=== PATIENT | female | born 1965 ===

== ENCOUNTER 2017-02-05 15:33 | Emergency (ER) | payer BC ==
[2017-02-05] MEDS ORDERED: 0.9 % SODIUM CHLORIDE 1,000 ML BAG IV ONE (15:44)
--- NOTE | 2017-02-05 15:45 | Emergency Department Record ---
History of Present Illness - General Chief Complaint: Abdominal Pain Stated Complaint: ABD PAIN Time Seen by Provider: 02/05/17 15:39 Source: Patient Mode of Arrival: Ambulatory Limitations: No limitations - History of Present Illness Initial Comments: 51 yo female presents from the [facility] with 4 days of abdominal pain. The pain is mostly on the left sided. It started 4 days ago but has progressed. She was concerned about constipation and did take a stool softer. After this she had loose stools but no relief of her symptoms. No fevers. No blood in the stools. No dysuria. Past surgery includes gall bladder removal. No mass or bulge in the LLQ MD Complaint: Abdominal pain -: Days(s) Location: LLQ Radiation: LLQ Migration to: LLQ Severity: Moderate Quality: Aching Consistency: Constant Improves With: Rest Worsens With: Movement Associated Symptoms: Constipation, Diarrhea - Related Data Home Medications Medication Instructions Recorded Confirmed Last Taken Cholecalciferol (Vitamin D3) 2,000 unit PO DAILY tab 10/24/15 02/05/17 02/04/17 [Vitamin D3] Ibuprofen 800 mg PO ASDIR PRN tab 10/24/15 02/05/17 02/04/17 Epinephrine [Epipen] 1 unit INJ ASDIR PRN 2 Days 02/05/17 02/05/17 Unknown Topiramate 2 tab PO DAILY 30 Days 02/05/17 02/05/17 02/04/17 Previous Rx's Medication Instructions Recorded Ciprofloxacin HCl [Cipro] 500 mg PO Q12HR #20 tablet 02/05/17 Metronidazole [Flagyl] 500 mg PO BID #20 tablet 02/05/17 Allergies Allergy/AdvReac Type Severity Reaction Status Date / Time Sulfa (Sulfonamide Allergy Mild RASH Unverified 02/05/17 15:48 Antibiotics) Review of Systems Constitutional: Denies: Chills, Fever, Malaise, Weakness Eyes: Denies: Eye discharge ENT: Denies: Congestion, Throat pain Respiratory: Denies: Cough, Dyspnea, Hemoptysis, Stridor, Wheezes Cardiovascular: Denies: Chest pain, Syncope Endocrine: Denies: Fatigue Gastrointestinal: Reports: As per HPI, Abdominal pain, Constipation, Diarrhea Genitourinary: Denies: Dysuria, Urgency Musculoskeletal: Denies: Arthralgia, Back pain, Joint swelling, Myalgia, Neck pain Skin: Denies: Bruising, Change in color, Rash Neurological: Denies: Headache, Numbness, Weakness Psychiatric: Denies: Anxiety Hematological/Lymphatic: Denies: Blood Clots, Easy bleeding, Easy bruising, Swollen glands Physical Exam - General General Appearance: Alert, Oriented x3, Cooperative, No acute distress Limitations: No limitations - Head Head exam: Normal inspection - Eye Eye exam: Normal appearance, PERRL. negative: Conjunctival injection, Periorbital swelling, Scleral icterus - ENT ENT exam: Normal exam, Mucous membranes moist Ear exam: Normal external inspection Nasal Exam: Normal inspection Mouth exam: Normal external inspection - Neck Neck exam: Normal inspection, Full ROM. negative: Tenderness - Respiratory Respiratory exam: Normal lung sounds bilaterally. negative: Respiratory distress - Cardiovascular Cardiovascular Exam: Regular rate, Normal rhythm, Normal heart sounds - Rectal Rectal exam: Deferred - exam: Deferred - Extremities Extremities exam: Normal inspection, Full ROM, Normal capillary refill. negative: Pedal edema, Tenderness - Back Back exam: Reports: Normal inspection, Full ROM. Denies: CVA tenderness (R), CVA tenderness (L), Muscle spasm, Paraspinal tenderness, Rash noted, Tenderness , Vertebral tenderness - Neurological Neurological exam: Alert, Normal gait, Oriented X3 - Psychiatric Psychiatric exam: Normal affect, Normal mood - Skin Skin exam: Dry, Intact, Normal color, Warm Course - Reevaluation(s) Reevaluation #1: No acute changes on the CBC or CMP Normal Lipase 02/05/17 16:48 Reevaluation #2: The CT scan was read as wall thickening with stranding of the descending and sigmoid colon with scattered diverticula suggesting acute diverticulitis without complications of free fluid, abscess or free area. The is an irregular area in the left kidney that will need non emergent followup to rule out mass or tumor. 02/05/17 19:18 Reevaluation #3: 02/05/17 19:31 I discussed the findings The patient clinically appear well, she is eating and drinking normally, her pain is well controlled She is a good outpatient candidate She was given Cipro and Flagyl She will call her doctor for follow up of he diverticulitis and the left renal mass We discussed reasons to return to the ER in the next few days as her diverticulitis is treated. Medical Decision Making - Lab Data Result diagrams: 02/05/17 16:16 02/05/17 16:16 Disposition Disposition: Discharge Clinical Impression: Left kidney mass Diverticulitis Qualifiers: Diverticulitis site: large intestine Diverticulitis bleeding: without bleeding Diverticulitis complication: without perforation or abscess Qualified Code(s): K57.32 - Diverticulitis of large intestine without perforation or abscess without bleeding Disposition: Home, Self-Care Condition: (1) Good Instructions: Diverticulitis (ED) Additional Instructions: Immediately return if you have uncontrolled pain, fever, vomiting or any concerns about your abdomen You will need to follow up your CT scan today that showed a small irregular area in your left kidney. The radiologist recommends an MRI of the kidney. Call your doctor to set this up as soon as possible. Prescriptions: Ciprofloxacin HCl [Cipro] 500 mg PO Q12HR #20 tablet Metronidazole [Flagyl] 500 mg PO BID #20 tablet Forms: Patient Portal Access Time of Disposition: 19:35
[2017-02-05 16:20] LABS: BASO % 0.3 % (0-6); EOS % 0.8 % (0-6); HEMATOCRIT 46.5 % (35.0-47.0); HEMOGLOBIN 15.3 gm/dl (11.6-16.0); LYMPH % 32.9 % (16-45); MEAN CELL VOLUME 86.6 fl (81-97); MEAN CORPUSCULAR HEMOGLOBIN 28.5 pg (27-33); MEAN CORPUSCULAR HGB CONC 32.9 g/dl (32-36); MEAN PLATELET VOLUME 9.3 fl (7.4-10.4); PLATELET COUNT 318 K/uL (130-400); RED BLOOD COUNT 5.37 M/uL (3.80-5.40); RED CELL DISTRIBUTION WIDTH 13.3 % (11.5-14.5); WHITE BLOOD COUNT W/O DIFF 6.5 K/uL (4.2-12.2)
[2017-02-05 16:32] LABS: ALB/GLOB RATIO 1.1 (1.1-1.8); ALBUMIN 4.5 gm/dL (3.5-5.0); ALKALINE PHOSPHATASE 90 U/L (38-126); ALT/SGPT 31 U/L (9-52); ANION GAP 10.3 (7-16); AST/SGOT 25 U/L (14-36); BLOOD UREA NITROGEN 15 mg/dL (7-17); CARBON DIOXIDE 23.7 mmol/L (22-30); EST GLOMERULAR FILTRATION RATE > 60 ml/min; GLUCOSE,RANDOM 94 mg/dL (70-110); LIPASE 145 U/L (23-300); TOTAL PROTEIN 8.6 gm/dL (6.3-8.2)
[2017-02-05 17:50] LABS: URINE APPEARANCE CLEAR; URINE BILIRUBIN NEGATIVE (NEGATIVE); URINE BLOOD TRACE-I (NEGATIVE); URINE COLOR YELLOW; URINE GLUCOSE (UA) NEGATIVE (NEGATIVE); URINE KETONE NEGATIVE (NEGATIVE); URINE LEUKOCYTE ESTERASE NEGATIVE (NEGATIVE); URINE NITRITE NEGATIVE (NEGATIVE); URINE PROTEIN NEGATIVE (NEGATIVE); URINE UROBILINOGEN 0.2 E.U./dL (0.20 - 1.00)
[2017-02-05 17:55] LABS: URINE BACTERIA NONE SEEN; URINE EPITHELIAL CELLS 0 - 2 (FEW); URINE RBC 0 - 2 (NONE SEEN); URINE WBC NONE SEEN (0-2/hpf)
[2017-02-05] MEDS ORDERED: METRONIDAZOLE 250 MG TABLET PO ONE ×2 (19:31→19:54)
[2017-02-05] MEDS ORDERED: CIPROFLOXACIN HCL 500 MG TABLET PO ONE ×2 (19:31→19:54)
[2017-02-05] MEDS ORDERED: HYDROCODONE/APAP 5/325MG TABLET PO ONE (19:55)
--- NOTE | 2017-02-07 09:57 | CT SCAN REPORT ---
EXAM: CT OF THE ABDOMEN AND PELVIS HISTORY: ABDOMINAL PAIN. TECHNIQUE: CT of the abdomen and pelvis was performed following IV administration of 100 ml of Omnipaque 300 contrast. Oral contrast was also utilized. Comparison: Prior noncontrast CT from 10/17/13. FINDINGS: Limited evaluation of the lung bases is unremarkable. The osseous structures are grossly intact. Status post cholecystectomy. The liver, spleen , adrenal glands, and pancreas are unremarkable. There is a heterogeneously enhancing mass in the mid pole of the left kidney measuring 1.9 x 2.2 cm. This was not definitively present on the prior noncontrast exam. This should be further assessed nonemergently. The kidneys are otherwise unremarkable. No evidence for bowel obstruction. Normal appendix. Wall thickening of the descending and sigmoid colons with surrounding inflammatory change. There are a few diverticula. Findings likely relate to acute diverticulitis. No discreet abscess, free air, or free fluid. Partially calcified and partially exophytic uterine fibroid present. Small/subcentimeter cysts of the ovaries are suggested. Correlate with menstrual history. IMPRESSION: 1. ACUTE DESCENDING/SIGMOID COLON DIVERTICULITIS. RECOMMEND CONTINUED FOLLOW- UP TO INSURE RESOLUTION. NO DISCREET ABSCESS, FREE AIR, OR FREE FLUID. 2. HETEROGENEOUSLY ENHANCING MASS IN THE ANTERIOR MID POLE OF THE LEFT KIDNEY. FURTHER ASSESSMENT WITH NONEMERGENT MRI IS RECOMMENDED. JOB NUMBER: [id number] [facility]
== END 2017-02-05 20:15 | disposition home or self-care (01) ==
LOC: ER 15:33
DX: K57.32 Diverticulitis of large intestine without perforation or abscess without bleeding (principal); N28.89 Other specified disorders of kidney and ureter; R19.7 Diarrhea, unspecified; R10.32 Left lower quadrant pain
CPT/HCPCS: 99284 ×2; 96360; 96361; 83690; 85025; 80053; 81001; 74020; 74177; Q9967; J7030

== ENCOUNTER 2019-04-02 12:48 | Day surgery (SDC) | payer BC ==
[2019-04-02] MEDS ORDERED: PROPOFOL 10 MG/ML VIAL IV ONE (12:49)
[2019-04-02] MEDS ORDERED: LIDOCAINE 2% MDV (20MG/ML) 20ML VIAL IV ONE (12:49)
--- NOTE | 2019-04-03 09:51 | Operative Note ---
OPERATION: COLONOSCOPY. PREOPERATIVE DIAGNOSIS: Family history of colon cancer. POSTOPERATIVE DIAGNOSIS: Sigmoid diverticula. PREPARATION QUALITY: Excellent. ESTIMATED BLOOD LOSS: None. SPECIMENS: None. COMPLICATIONS: None. PROCEDURE: After informed consent was obtained from the patient, she was placed in the left lateral decubitus position in the endoscopy suite, sedated and monitored by the department of anesthesia. Digital rectal exam was unremarkable. A well-lubricated [id number] colonoscope was inserted into the rectum and advanced to the cecum. Preparation quality was excellent. The cecum, cecal bulb, ileocecal valve, appendiceal orifice, ascending colon, transverse colon, descending colon were free of inflammatory changes, mass lesions, or polyps. The sigmoid colon demonstrated scattered diverticula. The rectum was unremarkable in forward and in J-turn views. The endoscope was straightened, the rectal ampulla deflated, and the endoscope was removed. RECOMMENDATIONS: I would suggest the patient follow a high-fiber diet. A repeat colonoscopy in 5 years is suggested based on her family history. As always, thank you for allowing me to participate in the healthcare of your patients. SIRISHA
== END 2019-04-02 14:05 | disposition home or self-care (01) ==
LOC: HOP 12:48
PROVIDERS: ATTEND Internal Medicine Gastroenterology
DX: Z12.11 Encounter for screening for malignant neoplasm of colon (principal); Z86.010 Personal history of colon polyps; Z80.0 Family history of malignant neoplasm of digestive organs; Z87.19 Personal history of other diseases of the digestive system; K57.30 Diverticulosis of large intestine without perforation or abscess without bleeding
CPT/HCPCS: 00812; G0105